=== PATIENT | female | born 1975 | race Caucasian/White ===

== ENCOUNTER 2017-08-08 13:24 | Inpatient (IN) | payer MEDICAID ==
[~2017-08-08] VITALS: Ht 152.4 cm; Wt 72.2 kg
[2017-08-08 14:30] LABS: BASOPHILS % 0.5 % (0.0-2.0); EOSINOPHILS # 0.1 10^3/ul (0.0-0.5); EOSINOPHILS % 1.3 % (0.0-7.0); HEMATOCRIT 35.2 % (37.0-47.0); HEMOGLOBIN 11.7 g/dl (12.0-16.0); LYMPHOCYTES % 23.2 % (15.0-51.0); MEAN CORPUSCULAR HEMOGLOBIN 28.3 pg (29.0-33.0); MEAN CORPUSCULAR HGB CONC 33.2 g/dl (32.0-37.0); MEAN PLATELET VOLUME 9.7 fl (7.4-10.4); MONOCYTE # 0.5 10^3/ul (0.3-0.9); MONOCYTES % 5.8 % (0.0-11.0); NEUTROPHIL # 5.8 10^3/ul (1.6-7.5); NEUTROPHILS % 68.6 % (39.0-77.0); PLATELET COUNT 261 10^3/UL (140-415); RED BLOOD COUNT 4.14 10^6/ul (4.20-5.40); RED CELL DISTRIBUTION WIDTH 12.4 % (11.5-14.5); WHITE BLOOD COUNT 8.4 10^3/ul (4.8-10.8)
[2017-08-08 14:34] LABS: ADD UMIC NO; UR ASCORBIC ACID 40 mg/dL (NEGATIVE); UR BACTERIA FEW /HPF (NONE SEEN); UR BILIRUBIN (Dip) NEGATIVE (NEGATIVE); UR BLOOD (Dip) NEGATIVE (NEGATIVE); UR CLARITY SLIGHTLY CLOUDY (CLEAR); UR COLOR YELLOW (YELLOW); UR GLUCOSE (Dip) NEGATIVE (NEGATIVE); UR KETONES (Dip) 2+ mg/dL (NEGATIVE); UR LEUKOCYTE ESTERASE (Dip) NEGATIVE Leu/ul (NEGATIVE); UR MUCUS MANY /HPF (NONE SEEN); UR NITRITE (Dip) NEGATIVE (NEGATIVE); UR RBC 1 /HPF (0-5); UR SQUAMOUS EPITHELIAL CELL FEW /HPF (FEW); UR TOTAL PROTEIN (Dip) NEGATIVE (NEGATIVE); UR UROBILINOGEN (Dip) NEGATIVE (NEGATIVE)
[2017-08-08 14:57] LABS: ALBUMIN 3.8 g/dl (3.3-4.9); ALBUMIN/GLOBULIN RATIO 1.08; BILIRUBIN,INDIRECT 0.5 mg/dl (0-1.1); BILIRUBIN,TOTAL 0.5 mg/dl (0.2-1.3); CALCIUM 9.6 mg/dl (8.4-10.2); CREATININE 0.46 mg/dl (0.44-1.00); POTASSIUM 3.6 mmol/L (3.5-5.1); TOTAL PROTEIN 7.3 g/dl (6.1-8.1)
[2017-08-08 14:59] VITALS: Ht 152.4 cm; Wt 72.2 kg
[2017-08-08 15:00] VITALS: BP 98/48; PULSE 80; RESP 20
[2017-08-08] MEDS ORDERED: GLUCOSE GEL 15 GRAM TUBE PO PRN ×2 (16:00)
[2017-08-08] MEDS ORDERED: GLUCAGON 1 MG INJ IM PRN (16:00)
[2017-08-08] MEDS ORDERED: GLUCOSE GEL 15 GRAM TUBE BUCCAL PRN (16:00)
[2017-08-08] MEDS ORDERED: DEXTROSE 50% 50 ML SYRINGE IV PRN ×2 (16:00)
--- NOTE | 2017-08-08 17:42 | HP ---
Date/Time of Note Date/Time of Note DATE: 08/08/17 TIME: 17:20 OB - History Hx of Present Free Text/Dictation 41 years old female now 9 weeks6/7 days admitted to [facility] with diagnosis of gestational diabetes 1 hour GT 202, an professor of biology recommended admission for workup and treatment of diabetes Chief Complaint: Elevated blood sugar with gestational diabetes Estimated Due Date: March 07, 2018 : 2 Para: 1 Care: Limited Care (Only first visit for care) Ultrasounds: No ultrasounds Obstetrical Complications: Gestational Diabetes Medical Complications: None Past Family/Social History * Past Medical, Surgical, Family and Obstetric Histories reviewed from chart. Rubella: immune RPR/VDRL: Negative GBS Status: Unknown HBsAG: Negative OB Admission Exam Vital Signs Vital Signs Vital Signs Date Time Temp Pulse Resp B/P Pulse Ox O2 Delivery O2 Flow Rate FiO2 08/08/17 15:00 98.0 80 20 98/48 Room Air Physical Exam HEENT: WNL Heart: Rhythm Normal Lungs: Clear, Equal Abdomen: WNL Extremities: Normal Cervical Dilatation: other (Not applicable) Heart Rate: 140's Last 72 hourBlood Glucose Bedside Glucose - 72 Hours Test 08/08/17 13:57 Bedside Glucose 158mg/dL (70-220) Last 72 hours Lab Results CBC & BMP 08/08/17 14:05 Liver Function Test 08/08/17 14:05 Alanine Aminotransferase (ALT/SGPT) 49 Albumin 3.8 Alkaline Phosphatase 66 Aspartate Amino Transf (AST/SGOT) 29 Direct Bilirubin 0.00 Total Protein 7.3 Hemoglobin A1C Test 08/08/17 14:05 Hemoglobin A1c 6.0 H OB Assessment/Plan Reason for admission: other (Workup and treatment of gestational diabetes) Other plan: This is a 41 years old 9 /12 weeks gestational diabetes with 1 hour gt 202 , admitted for workup and treatment. Workup plan CBC Fasting, 2 hours postprandial Hemoglobin A1c Complete chem panel 24 hours urine collection for protein and creatinine clearance Urinalysis/culture and sensitivity Sliding scale 2000-calorie diet Perinatology/computer sciences professor consult MARCI DAILY MD Aug 08, 2017 17:38
[2017-08-08] MEDS: INSULIN ASPART [NOVOLOG] 3 ML PEN SC SCH (20:00)
[2017-08-08] MEDS: ACCU-CHEK XX SCH (20:00)
[2017-08-09] MEDS: ACCU-CHEK XX SCH ×4 (07:39→20:45)
[2017-08-09] MEDS: INSULIN ASPART [NOVOLOG] 3 ML PEN SC SCH ×3 (10:00→20:05)
[2017-08-09 15:31] LABS: SCRET 0.46 mg/dl (0.44-1.00)
--- NOTE | 2017-08-09 16:32 | QN ---
Documentation Comment Afebrile Signs are stable Fasting and 2 hours postprandial within normal, transmission tester providing her with glucometer for during her blood glucose at home possibility of a.m. discharge discussed with the patient MARCI DAILY MD Aug 09, 2017 16:32
[2017-08-09] MEDS: PRENATAL VITAMIN PO SCH (18:19)
[2017-08-10] MEDS: PRENATAL VITAMIN PO SCH (09:05)
--- NOTE | 2017-08-10 10:06 | QN ---
Documentation Comment Vital signs are stable, fasting blood sugar today 107' ,2 hours postprandial post breakfast yesterday blood sugar 125' did not require sliding scale, plan of a.m. discharge with follow-up at diabetes clinic as outpatient MARCI DAILY MD Aug 10, 2017 10:06
[2017-08-10] MEDS: INSULIN ASPART [NOVOLOG] 3 ML PEN SC SCH ×3 (19:30→20:05)
[2017-08-10] MEDS: ACCU-CHEK XX SCH ×3 (19:30→20:05)
[2017-08-10] MEDS: INSULIN ISOPHANE (NPH) 10 ML INJ SC SCH (21:06)
[2017-08-11] MEDS: ACCU-CHEK XX SCH ×4 (07:30→19:30)
[2017-08-11] MEDS: PRENATAL VITAMIN PO SCH (09:52)
[2017-08-11] MEDS ORDERED: INFLUENZA VIRUS VACCINE 0.5 ML SYG IM* ONE (12:00)
--- NOTE | 2017-08-11 14:03 | QN ---
Documentation Comment Vital signs are stable Fasting blood sugar 94 Needs education to be able monitor blood glucose at home Requires glucometer, other supplies for home glucose monitoring. MARCI DAILY MD Aug 11, 2017 14:03
--- NOTE | 2017-08-11 14:04 | QN ---
Documentation Comment Vital signs stable Infrequent mild contraction mostly not felt Cervical length2.7 Presently on Procardia 20 mg every 6 hours We will continue present treatment. MARCI DAILY MD Aug 11, 2017 14:04
[2017-08-11] MEDS: INSULIN ASPART [NOVOLOG] 3 ML PEN SC SCH ×2 (15:10→20:05)
[2017-08-11] MEDS: INSULIN ISOPHANE (NPH) 10 ML INJ SC SCH (22:30)
[2017-08-12] MEDS: ACCU-CHEK XX SCH ×3 (07:55→14:05)
[2017-08-12] MEDS: PRENATAL VITAMIN PO SCH (08:53)
[2017-08-12] MEDS: INSULIN ASPART [NOVOLOG] 3 ML PEN SC SCH ×2 (10:50→14:00)
--- NOTE | 2017-08-12 15:30 | QN ---
Documentation Comment Quick Note: 10 wks with uncontrolled DM Doing fine No complaints Instruction are given to patient by Perinatalogist and diabetic control Patient's questions answered --->discharge Home TC UD M.D. Aug 12, 2017 15:30
--- NOTE | 2017-08-12 15:31 | DS ---
Date/Time of Note Date/Time of Note DATE: 08/12/17 TIME: 15:31 Discharge Summary Admission/Discharge Info Admit Date/Time Aug 08, 2017 at 13:24 Discharge Date/Time 08/12/17 Discharge Diagnosis Uncontrollected DM Patient Condition: Good Hospital Course uneventful Primary Care Provider Care Physician No Primary Pending Labs Laboratory Tests Test 08/11/17 19:35 08/12/17 08:06 08/12/17 10:55 08/12/17 12:20 Bedside Glucose 95mg/dL (70-220) 102mg/dL (70-220) 103mg/dL (70-220) 80mg/dL (70-220) TC DU M.D. Aug 12, 2017 15:31
== END 2017-08-12 15:46 | disposition home or self-care (01) | DRG 781 ==
LOC: OBG 13:24
PROVIDERS: ADMIT Obstetrics & Gynecology; ATTEND Obstetrics & Gynecology
DX: O24.419 Gestational diabetes mellitus in pregnancy, unspecified control (principal); O09.523 Supervision of elderly multigravida, third trimester; Z3A.09 9 weeks gestation of pregnancy
CPT/HCPCS: 80053; 81001; 81003; 82575; 82962; 83036; 84156; 85025; 87086; 90686; J1815

== ENCOUNTER 2018-02-14 16:50 | Inpatient (IN) | END 2018-02-17 20:00 | disposition home or self-care (01) | DRG 766 ==